=== PATIENT | male | born 1985 | race Caucasian/White ===

== ENCOUNTER 2018-05-04 23:09 | Emergency (ER) | payer OTHER ==
[2018-05-04 23:22] VITALS: BP 127/84; PULSE 122; TEMP 97.9
[2018-05-05 01:12] VITALS: RESP 16
--- NOTE | 2018-05-05 01:17 | ED ---
General Adult HPI - General Source: patient, RN notes reviewed Mode of arrival: ambulatory Limitations: no limitations <Jeramie Rodriguez P - Last Filed: 05/05/18 01:18> <Araseli Lee P - Last Filed: 05/05/18 02:44> - General Chief complaint: Psychiatric Symptoms Stated complaint: Mental Health Time Seen by Provider: 05/04/18 23:44 - History of Present Illness Initial comments: 33-year-old male presents to the emergency department for a chief complaint of anxiety. Patient states he has a history of depression, anxiety, and bipolar disorder. Patient states he feels like he is hearing things. Patient states he has been taking meth but does not want to go to rehab or have treatment for this. He states he is quitting however. Patient states last week he had thoughts of hurting himself but did not have any plans as to how to do this. Patient denies any thoughts of suicide or harming himself at this time. He denies any plans of suicide whatsoever. He denies any thoughts of harming anyone else. Patient has no other complaints at this time including shortness of breath, chest pain, abdominal pain, nausea or vomiting, headache, or visual changes. (Jeramie Rodriguez) - Related Data Home Medications Medication Instructions Recorded Confirmed No Known Home Medications 05/04/18 05/04/18 Allergies Allergy/AdvReac Type Severity Reaction Status Date / Time No Known Allergies Allergy Verified 05/04/18 23:46 Review of Systems ROS Other: All systems not noted in ROS Statement are negative. <Jeramie Rodriguez P - Last Filed: 05/05/18 01:18> ROS Other: All systems not noted in ROS Statement are negative. <Araseli Lee P - Last Filed: 05/05/18 02:44> ROS Statement: Those systems with pertinent positive or pertinent negative responses have been documented in the HPI. Past Medical History Past Medical History: No Reported History History of Any Multi-Drug Resistant Organisms: None Reported Past Surgical History: No Surgical Hx Reported Past Psychological History: Anxiety, Bipolar, Depression Smoking Status: Current every day smoker Past Alcohol Use History: Daily Past Drug Use History: Marijuana, Methamphetamine <Jeramie Rodriguez P - Last Filed: 05/05/18 01:18> General Exam Limitations: no limitations General appearance: alert, in no apparent distress Head exam: Present: atraumatic, normocephalic, normal inspection Eye exam: Present: normal appearance, PERRL, EOMI. Absent: scleral icterus, conjunctival injection, periorbital swelling ENT exam: Present: normal exam, mucous membranes moist Neck exam: Present: normal inspection, full ROM. Absent: tenderness, meningismus, lymphadenopathy Respiratory exam: Present: normal lung sounds bilaterally. Absent: respiratory distress, wheezes, rales, rhonchi, stridor Cardiovascular Exam: Present: regular rate, normal rhythm, normal heart sounds. Absent: systolic murmur, diastolic murmur, rubs, gallop, clicks Neurological exam: Present: alert, oriented X3, CN II-XII intact Psychiatric exam: Present: normal affect, normal mood <Jermaie Rodriguez P - Last Filed: 05/05/18 01:18> Vital Signs 05/04/18 05/05/18 23:20 01:06 Temperature 97.9 F Pulse Rate 122 H Respiratory 18 16 Rate Blood Pressure 127/84 O2 Sat by Pulse 98 Oximetry Medical Decision Making <Jeramie Rodriguez P - Last Filed: 05/05/18 01:18> <Araseli Lee P - Last Filed: 05/05/18 02:44> - Medical Decision Making 33-year-old male with a past medical history of bipolar disorder, anxiety, depression presents to the emergency department for a chief complaint of anxiety. Patient states he has also been hearing things. Patient states he has never been on any medications and does not want to take anything that is approved by the FDA. Patient recently quit taking meth. Patient denies any thoughts of suicide or harming himself. EPS saw patient and feels he can follow up outpatient. Patient did not disclose this to me but apparently he disclosed to EPS that he was recently in nursing home for meth and is facing another 10 years in nursing home. EPS feels that he is trying to avoid this. Patient refused repeat heart rate and states he wants to leave immediately. ( Jeramie Rodriguez) I was available for consultation in the emergency department. The history and physical exam were done by the midlevel provider. I was consulted for this patient's care. I reviewed the case with the midlevel provider and based on their presentation of the patient, I agree with the assessment, medical decision making and plan of care as documented. (Araseli Lee P) Disposition Is patient prescribed a controlled substance at d/c from ED?: No Time of Disposition: 01:15 <Jeramie Rodriguez P - Last Filed: 05/05/18 01:18> <Araseli Lee P - Last Filed: 05/05/18 02:44> Clinical Impression: Acute anxiety Disposition: HOME SELF-CARE Condition: Good Instructions: Anxiety (ED) Additional Instructions: Please follow up with primary care in 1-2 days. Please return to the emergency department if you have any worsening symptoms. Referrals: Gabrielle Butt MD [STAFF PHYSICIAN] - 1-2 days
== END 2018-05-05 01:21 | disposition home or self-care (01) ==
LOC: EC 23:09
DX: F41.9 Anxiety disorder, unspecified (principal); R44.0 Auditory hallucinations; F15.90 Other stimulant use, unspecified, uncomplicated; F17.200 Nicotine dependence, unspecified, uncomplicated
CPT/HCPCS: 99285